=== PATIENT | male | born 1980 | race Two or more races ===

== ENCOUNTER 2019-09-02 19:30 | Emergency (ER) | payer OTHER ==
[~2019-09-02] VITALS: Ht 188 cm; Wt 104.3 kg
--- NOTE | 2019-09-02 19:45 | NUR ---
Dr. Dennison at bedside for MSE.
--- NOTE | 2019-09-02 21:35 | NUR ---
Patient discharged to home in stable conditon. Written and verbal after care instructions given. Patient verbalizes understanding of instructions. Pt ambulated out of ER with steady gait, no acute signs of distress, VSS, all belongings taken.
[2019-09-02 21:36] VITALS: BP 136/93
== END 2019-09-02 21:36 | disposition home or self-care (01) ==
LOC: ER 19:32
DX: J06.9 Acute upper respiratory infection, unspecified (principal); L02.412 Cutaneous abscess of left axilla
CPT/HCPCS: 87400; A4663

== ENCOUNTER 2019-12-06 08:50 | Emergency (ER) | payer OTHER ==
[~2019-12-06] VITALS: Ht 188 cm; Wt 108.9 kg
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
--- NOTE | 2019-12-06 09:04 | NUR ---
ERMD at bedside for MSE
[2019-12-06] MEDS ORDERED: IBUPROFEN 800 MG TABLET ONE (09:11)
[2019-12-06] MEDS ORDERED: NEOMY/BACITRA/POLYMYXIN B OINT UD PACKET TP ONE ×2 (09:11→09:15)
[2019-12-06] MEDS ORDERED: IBUPROFEN 800 MG TABLET PO ONE (09:15)
[2019-12-06] MEDS ORDERED: HYDROCODONE/APAP 10-325 MG TABLET ONE (09:57)
[2019-12-06] MEDS ORDERED: HYDROCODONE/APAP 10-325 MG TABLET PO ONE (10:00)
--- NOTE | 2019-12-06 10:26 | NUR ---
Patient discharged to home in stable conditon. Written and verbal after care instructions given. Patient verbalizes understanding of instructions. Patient ambulated with stable gait.
--- NOTE | 2019-12-06 10:26 | NUR ---
Instructed patient that he cannot drive, states that he will take uber.
[2019-12-06 10:27] VITALS: BP 119/77
== END 2019-12-06 10:28 | disposition home or self-care (01) ==
LOC: ER 08:50
DX: S52.121A Displaced fracture of head of right radius, initial encounter for closed fracture (principal); S09.90XA Unspecified injury of head, initial encounter; S89.91XA Unspecified injury of right lower leg, initial encounter; V03.00XA Pedestrian on foot injured in collision with car, pick-up truck or van in nontraffic accident, initial encounter; Y93.89 Activity, other specified; Y92.410 Unspecified street and highway as the place of occurrence of the external cause; Y99.8 Other external cause status
CPT/HCPCS: 73080; A4663

== ENCOUNTER 2023-02-15 14:00 | Emergency (ER) | payer OTHER ==
[~2023-02-15] VITALS: Ht 188 cm; Wt 111.1 kg
== END 2023-02-15 16:20 | disposition left against medical advice (07) ==
LOC: ER 14:00
DX: Z53.21 Procedure and treatment not carried out due to patient leaving prior to being seen by health care provider (principal)
CPT/HCPCS: A4663